=== PATIENT | female | born 1990 | race Caucasian/White ===

== ENCOUNTER 2018-04-01 21:31 | Emergency (ER) | payer SELFPAY ==
[2018-04-01 21:45] VITALS: BP 134/75
[2018-04-01] MEDS ORDERED: DEXAMETHASONE SOD PHOS INJ 10 MG/1 ML VIAL IM ONE (23:43)
[2018-04-01] MEDS ORDERED: IBUPROFEN SUSP 100 MG/5 ML ORAL SYRINGE PO ONE (23:44)
[2018-04-01] MEDS ORDERED: PENICILLIN V POTASSIUM 500 MG TABLET PO ONE (23:44)
--- NOTE | 2018-04-01 23:50 | ER Document Report ---
ED ENT - General Chief Complaint: Sore Throat Stated Complaint: SORE THROAT Time Seen by Provider: 04/01/18 23:37 Mode of Arrival: Ambulatory Notes: Patient is a 27-year-old female who presents with chief complaint of sore throat 3 days. Patient also reports that it is difficult for her to swallow. Patient is speaking in full and complete sentences and swallowing with no acute distress noted. Patient denies any fever, patient denies any sick contacts. TRAVEL OUTSIDE OF THE [place] IN LAST 30 DAYS: No - Related Data Allergies/Adverse Reactions: No Known Allergies Allergy (Verified 04/01/18 23:44) Past Medical History - General Information source: Patient - Social History Smoking Status: Current Every Day Smoker Chew tobacco use (# tins/day): No Frequency of alcohol use: Occasional Drug Abuse: None Family History: CAD, DM, Hyperlipidemia, Hypertension, Malignancy, Thyroid Disfunction Patient has suicidal ideation: No Patient has homicidal ideation: No Endocrine Medical History: Reports: Hx Hypothyroidism Renal/ Medical History: Denies: Hx Peritoneal Dialysis Musculoskeltal Medical History: Reports Hx Musculoskeletal Deformity, Reports Hx Musculoskeletal Trauma Traumatic Medical History: Reports: Hx Fractures Review of Systems - Review of Systems Constitutional: No symptoms reported EENT: Throat pain Cardiovascular: No symptoms reported Respiratory: No symptoms reported Gastrointestinal: No symptoms reported Genitourinary: No symptoms reported Female Genitourinary: No symptoms reported Musculoskeletal: No symptoms reported Skin: No symptoms reported Hematologic/Lymphatic: No symptoms reported Neurological/Psychological: No symptoms reported Physical Exam - Vital signs Vitals: Temp Pulse BP Pulse Ox 98.8 F 88 134/75 H 99 04/01/18 21:44 04/01/18 21:44 04/01/18 21:44 04/01/18 21:44 - Notes Notes: PHYSICAL EXAMINATION: GENERAL: Well-appearing, well-nourished and in no acute distress. HEAD: Atraumatic, normocephalic. EYES: Pupils equal round and reactive to light, extraocular movements intact, conjunctiva are normal. ENT: Nares patent, oropharynx erythematous without exudates, no swelling noted, uvula midline. No evidence of INSECT CONTROL INSPECTOR. Moist mucous membranes. NECK: Normal range of motion, supple without lymphadenopathy LUNGS: Breath sounds clear to auscultation bilaterally and equal. No wheezes rales or rhonchi. HEART: Regular rate and rhythm without murmurs ABDOMEN: Soft, nontender, nondistended abdomen. No guarding, no rebound. No masses appreciated. Female : deferred Musculoskeletal: Normal range of motion, no pitting or edema. No cyanosis. NEUROLOGICAL: Cranial nerves grossly intact. Normal speech, normal gait. Normal sensory, motor exams PSYCH: Normal mood, normal affect. SKIN: Warm, Dry, normal turgor, no rashes or lesions noted. Course - Re-evaluation Re-evalutation: Otherwise healthy 27-year-old female presenting with chief complaint of sore throat. Rapid strep was collected by triage nurse however has not resulted patient and reports that she has to leave. On examination patient's throat is erythematous, without swelling, without exudates, no sign of peritonsillar abscess. Will start patient on penicillin for possible strep throat due to her physical exam. Patient is agreeable to this plan and agrees to return to the emergency department if her throat pain worsens or she develops significant swelling, shortness of breath or difficulty swallowing. - Vital Signs Vital signs: Temp Pulse Resp BP Pulse Ox 98.8 F 88 134/75 H 99 04/01/18 21:44 04/01/18 21:44 04/01/18 21:44 04/01/18 21:44 Discharge - Discharge Clinical Impression: Pharyngitis Qualifiers: Pharyngitis/tonsillitis etiology: unspecified etiology Qualified Code(s): J02.9 - Acute pharyngitis, unspecified Condition: Stable Disposition: HOME, SELF-CARE Additional Instructions: Sore Throat Sore throats may be caused by viruses, bacteria, or fungi. Most are due to a virus, and must get better on their own. Bacterial sore throats, particularly those due to "strep," need treatment with antibiotics. If an antibiotic is prescribed, be sure to take the medication for a full 10 days. Failure to take the antibiotic can result in complications such as rheumatic fever. Sometimes, an injection of antibiotics is given instead of pills or liquid. This single "shot" is equal in effectiveness to the oral medication. To relieve symptoms, take acetaminophen for pain. Sip clear liquids frequently, or eat popsicles or ice chips. Anesthetic sprays or lozenges may help. Make sure the air in the room is not too dry. Avoid using decongestants or antihistamines. Call the doctor if there is no improvement in two days, or if you have difficulty breathing, increasing throat pain, high fever, rash, or frequent vomiting. Please take the antibiotics as prescribed. If you feel like you are having difficulty swallowing please use liquid Children's Motrin. Prescriptions: Penicillin V Potassium [Penicillin Vk 500 mg Tablet] 500 mg PO BID #20 tablet
== END 2018-04-02 00:15 | disposition home or self-care (01) ==
LOC: ER 21:31
DX: J02.9 Acute pharyngitis, unspecified (principal); F17.200 Nicotine dependence, unspecified, uncomplicated; E03.9 Hypothyroidism, unspecified
CPT/HCPCS: 99283; 96372; 87070; 87880; J1100

== ENCOUNTER 2018-05-04 22:46 | Emergency (ER) | payer SELFPAY ==
[2018-05-05] MEDS ORDERED: DIPHENHYDRAMINE HCL 50 MG CAPSULE PO ONE (02:23)
[2018-05-05] MEDS ORDERED: ONDANSETRON 4 MG TAB.RAPDIS PO ONE (02:23)
[2018-05-05] MEDS ORDERED: PREDNISONE 20 MG TABLET PO ONE (02:23)
[2018-05-05] MEDS ORDERED: DICYCLOMINE HCL 20 MG TABLET PO ONE (02:24)
--- NOTE | 2018-05-05 02:32 | ER Document Report ---
ED Allergic Reaction - General Mode of Arrival: Ambulatory Information source: Patient TRAVEL OUTSIDE OF THE [place] IN LAST 30 DAYS: No <VINCE TAPIA - Last Filed: 05/05/18 02:35> <GUERO CARL - Last Filed: 05/05/18 03:24> - General Chief Complaint: Abdominal Pain Stated Complaint: RASH Time Seen by Provider: 05/05/18 01:08 Notes: Patient is a 28-year-old female who presents to the emergency department today with complaints of AN allergic reaction. Patient states 2 days ago she developed itching after eating chicken and shrimp from a [place] restaurant. Patient states shortly after eating that the itching began and she also had diarrhea and nausea. Patient denies abdominal pain. (VINCE TAPIA) - Related Data Allergies/Adverse Reactions: No Known Allergies Allergy (Verified 05/05/18 02:16) Past Medical History - General Information source: Patient - Social History Smoking Status: Current Every Day Smoker Cigarette use (# per day): Yes Chew tobacco use (# tins/day): No Frequency of alcohol use: None Drug Abuse: None Lives with: Family Family History: Reviewed & Not Pertinent, CAD, DM, Hyperlipidemia, Hypertension , Malignancy, Thyroid Disfunction Patient has suicidal ideation: No Patient has homicidal ideation: No Endocrine Medical History: Reports: Hx Hypothyroidism Musculoskeletal Medical History: Reports Hx Musculoskeletal Deformity, Reports Hx Musculoskeletal Trauma Traumatic Medical History: Reports: Hx Fractures Surgical Hx: Negative <VINCE TAPIA - Last Filed: 05/05/18 02:35> Review of Systems - Review of Systems Constitutional: No symptoms reported EENT: No symptoms reported Cardiovascular: No symptoms reported Respiratory: No symptoms reported Gastrointestinal: See HPI, Diarrhea, Nausea. denies: Abdominal pain Genitourinary: No symptoms reported Female Genitourinary: No symptoms reported Musculoskeletal: No symptoms reported Skin: See HPI, Other - itchy Hematologic/Lymphatic: No symptoms reported Neurological/Psychological: No symptoms reported -: Yes All other systems reviewed and negative <VINCE TAPIA - Last Filed: 05/05/18 02:35> Physical Exam - Vital signs Interpretation: Normal - General General appearance: Appears well, Alert - HEENT Head: Normocephalic, Atraumatic Eyes: Normal Pupils: PERRL Mouth/Lips: Normal Mucous membranes: Moist Pharynx: Normal - Respiratory Respiratory status: No respiratory distress Chest status: Nontender Breath sounds: Normal Chest palpation: Normal - Cardiovascular Rhythm: Regular Heart sounds: Normal auscultation Murmur: No - Abdominal Inspection: Normal Distension: No distension Bowel sounds: Normal Tenderness: Nontender Organomegaly: No organomegaly - Back Back: Normal, Nontender - Extremities General upper extremity: Normal inspection, Nontender, Normal color, Normal ROM , Normal temperature General lower extremity: Normal inspection, Nontender, Normal color, Normal ROM , Normal temperature, Normal weight bearing. No: Nathen's sign - Neurological Neuro grossly intact: Yes Cognition: Normal Orientation: AAOx4 Anne Coma Scale Eye Opening: Spontaneous [place] Coma Scale Verbal: Oriented [place] Coma Scale Motor: Obeys Commands [place] Coma Scale Total: 15 Speech: Normal Motor strength normal: LUE, RUE, LLE, RLE Sensory: Normal - Psychological Associated symptoms: Normal affect, Normal mood - Skin Skin Temperature: Warm Skin Moisture: Dry Skin Color: Normal Skin irregularity: other - Diffuse urticaria <GUERO CARL - Last Filed: 05/05/18 03:24> - Vital signs Vitals: Temp Pulse Resp BP Pulse Ox 97.7 F 108 H 20 123/76 99 05/04/18 23:07 05/04/18 23:07 05/04/18 23:07 05/04/18 23:07 05/04/18 23:07 Course <VINCE TAPIA - Last Filed: 05/05/18 02:35> <GUERO CARL - Last Filed: 05/05/18 03:24> - Re-evaluation Re-evalutation: 05/05/18 Patient is a 28-year-old female who developed nausea, diarrhea, and urticaria after a meal she ate 2 days ago. Patient still has urticaria. No abdominal pain. States that she gets cramping and diarrhea before a bowel movement. Taking p.o. She is not . Does not want to give urine sample but would prefer to be treated and go home. She will be given Benadryl and a prescription for prednisone. Return if worsening or concerning symptoms. Understands and agrees with plan. Needs work note. (GUERO CARL) - Vital Signs Vital signs: Temp Pulse Resp BP Pulse Ox 97.7 F 93 16 121/80 100 05/05/18 02:42 05/05/18 02:42 05/05/18 02:42 05/05/18 02:42 05/05/18 02:42 Discharge <VINCE TAPIA - Last Filed: 05/05/18 02:35> <GUERO CARL - Last Filed: 05/05/18 03:24> - Discharge Clinical Impression: Urticaria Diarrhea Qualifiers: Diarrhea type: unspecified type Qualified Code(s): R19.7 - Diarrhea, unspecified Condition: Stable Disposition: HOME, SELF-CARE Instructions: Acute Urticaria ([facility]), Diarrhea, Nonspecific ([facility]) Additional Instructions: Please take Claritin and Benadryl as needed [id number] for itching. Prescriptions: Dicyclomine HCl [Bentyl 20 mg Tablet] 20 mg PO BID #14 tablet Metoclopramide HCl [Reglan 10 mg Tablet] 1 - 2 tab PO ASDIR PRN #25 tablet PRN Reason: Prednisone 40 mg PO DAILY #6 tablet Forms: Return to Work Scribe Attestation: 05/05/18 03:24 I personally performed the services described in the documentation, reviewed and edited the documentation which was dictated to the scribe in my presence, and it accurately records my words and actions. (GUERO CARL) Scribe Documentation - Scribe Written by Scribe:: Pedro De La Rosa, 05/05/2018 [id number] acting as scribe for :: Katy <VINCE TAPIA - Last Filed: 05/05/18 02:35>
[2018-05-05 02:43] VITALS: BP 121/80
== END 2018-05-05 02:45 | disposition home or self-care (01) ==
LOC: ER 22:46
DX: L50.9 Urticaria, unspecified (principal); R19.7 Diarrhea, unspecified; R11.0 Nausea; F17.210 Nicotine dependence, cigarettes, uncomplicated
CPT/HCPCS: 99282; J3490; S0119; J7512